=== PATIENT | female | born 1965 | race Caucasian/White ===

== ENCOUNTER 2016-09-26 06:23 | Day surgery (SDC) | payer OTHER ==
[~2016-09-26] VITALS: Ht 160 cm; Wt 76.0 kg
[~2016-09-26 06:23] MED LIST: LACTATED RINGERS 1,000 ML IV SCH; SODIUM CHLORIDE FLUSH 3 ML SYR IV PRN
[2016-09-26 06:43] VITALS: BP 100/77
[2016-09-26] MEDS ORDERED: PROPOFOL 20 ML IV ONE (07:22)
[2016-09-26] MEDS ORDERED: ALFENTANIL 500 MCG/ML (ALFENTA) 5 ML AMP IV ONE ×2 (07:23)
[2016-09-26] MEDS ORDERED: MIDAZOLAM 2 MG/2 ML (VERSED) VIAL ONE (07:23)
[2016-09-26 08:17] VITALS: BP 105/43
[2016-09-26 08:34] VITALS: BP 117/69
== END 2016-09-26 08:43 | disposition home or self-care (01) ==
LOC: ASC 06:23
PROVIDERS: ATTEND Surgery
PROC: 0DJD8ZZ Inspection of Lower Intestinal Tract, Via Natural or Artificial Opening Endoscopic (ICD-10-PCS; principal; 2016-09-26)
DX: Z12.11 Encounter for screening for malignant neoplasm of colon (principal); I51.9 Heart disease, unspecified; E11.9 Type 2 diabetes mellitus without complications; E66.9 Obesity, unspecified; Z68.29 Body mass index [BMI] 29.0-29.9, adult; F17.210 Nicotine dependence, cigarettes, uncomplicated; K59.00 Constipation, unspecified
CPT/HCPCS: 45378; 93005; J2250; J7120